=== PATIENT | male | born 1940 | race Caucasian/White ===

== ENCOUNTER → 2020-08-04 10:06 | Outpatient (BNVA) | payer MEDICARE, SELFPAY | PROVIDERS: PCP Family Medicine; Visit Provider Hospitalist | DX: J67.9 Hypersensitivity pneumonitis due to unspecified organic dust (principal); J84.9 Interstitial pulmonary disease, unspecified; R06.02 Shortness of breath; S22.49XD Multiple fractures of ribs, unspecified side, subsequent encounter for fracture with routine healing; W18.30XD Fall on same level, unspecified, subsequent encounter; Y93.9 Activity, unspecified; Y92.9 Unspecified place or not applicable; Y99.8 Other external cause status; Z87.891 Personal history of nicotine dependence | CPT/HCPCS: 99202; 99212 ==

== ENCOUNTER 2020-11-23 15:11 | Outpatient (REF) | payer MEDICARE, SELFPAY ==
[2020-11-23 15:34] LABS: MANUAL DIFF FLAG NO
[2020-11-23 16:02] LABS: Basophils Absolute Auto 0.1 X10*3/uL (0.0-0.2); Basophils Percent Auto 0.7 % (0-2); Eosinophils Absolute Auto 0.2 X10*3/uL (0.0-0.4); Eosinophils Percent Auto 2.2 % (0-4); Hematocrit 32.6 % (42-52); Hemoglobin 10.9 g/dl (14.0-18.0); Imm Gran Abs Auto 0.03 X10*3/uL (0.00-0.03); Imm Gran Pct Auto 0.4 % (0.0-0.4); Lymphocytes Absolute Auto 1.8 X10*3/uL (1.2-4.9); Lymphocytes Percent Auto 25.8 % (20-40); Mean Corpuscular HGB Conc 33.4 g/dl (31.0-36.0); Mean Corpuscular Hemoglobin 36.2 pg (27.0-33.0); Mean Corpuscular Volume 108.3 fL (80-98); Mean Platelet Volume 9.7 fL (9.4-12.4); Monocytes Percent Auto 14.2 % (2-11); Neutrophils Absolute Auto 3.9 X10*3/uL (2.0-8.3); Neutrophils Percent Auto 56.7 % (45-73); Platelet Count 300 X10*3/uL (160-400); Red Blood Count 3.01 X10*6/uL (4.60-5.80); Red Cell Distribution Width 16.2 % (11.0-16.0); White Blood Count 6.8 X10*3/uL (4.8-10.8)
[2020-11-23 16:58] LABS: Alanine Aminotransferase 10 U/L (0-40); Albumin Level 3.7 g/dL (3.5-5.0); Alkaline Phosphatase 61 U/L (39-117); Aspartate Amino Transferase 16 U/L (5-37); Bilirubin Total 0.8 mg/dL (0.0-1.0); Blood Urea Nitrogen 23 mg/dL (9-16); Calcium 9.3 mg/dL (8.4-10.2); Estimated Glomerular Filt Rate > 60; Glucose Random 87 mg/dL (60-115); Lactate Dehydrogenase 161 U/L (118-273); Total Protein 7.6 g/dL (6.5-8.0)
[2020-11-23 17:28] LABS: Anion Gap 13 (12-20); Carbon Dioxide 26 mmol/L (22-29); Chloride 105 mmol/L (96-108); Potassium 4.4 mmol/L (3.3-5.1); Sodium 140 mmol/L (135-145)
[2020-11-25 02:40] LABS: Immunoglobulin A 20 mg/dL (70-320); Immunoglobulin G 392 mg/dL (600-1540); Immunoglobulin M 2783 mg/dL (50-300)
[2020-11-30 07:36] LABS: Viscosity 2.2 rel to H2O (1.5-1.9)
== END 2020-11-23 15:12 | disposition home or self-care (01) ==
LOC: HO.LAB 15:11
PROVIDERS: PCP Family Medicine; Visit Provider Internal Medicine
DX: D47.2 Monoclonal gammopathy (principal)
CPT/HCPCS: 36415; 80053; 82784; 83615; 85025; 85810

== ENCOUNTER → 2021-02-23 11:17 | Outpatient (BNVA) | payer MEDICARE, SELFPAY | PROVIDERS: PCP Family Medicine; Visit Provider Psychiatry & Neurology Neurology | DX: F03.90 Unspecified dementia, unspecified severity, without behavioral disturbance, psychotic disturbance, mood disturbance, and anxiety (principal) | CPT/HCPCS: 99212 ==

== ENCOUNTER 2021-04-12 09:55 | Outpatient (REF) | payer MEDICARE, SELFPAY ==
[2021-04-12 12:12] LABS: MANUAL DIFF FLAG NO
[2021-04-12 12:28] LABS: Basophils Percent Auto 0.5 % (0-2); Eosinophils Absolute Auto 0.1 X10*3/uL (0.0-0.4); Eosinophils Percent Auto 1.3 % (0-4); Hemoglobin 11.2 g/dl (14.0-18.0); Imm Gran Abs Auto 0.03 X10*3/uL (0.00-0.03); Imm Gran Pct Auto 0.4 % (0.0-0.4); Lymphocytes Absolute Auto 1.7 X10*3/uL (1.2-4.9); Lymphocytes Percent Auto 20.2 % (20-40); Mean Corpuscular HGB Conc 32.9 g/dl (31.0-36.0); Mean Corpuscular Hemoglobin 35.2 pg (27.0-33.0); Mean Corpuscular Volume 106.9 fL (80.0-98.0); Mean Platelet Volume 9.4 fL (9.4-12.4); Monocytes Percent Auto 12.4 % (2-11); Neutrophils Absolute Auto 5.4 x10*3/uL (2.0-8.3); Neutrophils Percent Auto 65.2 % (45-73); Platelet Count 307 X10*3/uL (160-400); Red Blood Count 3.18 X10*6/uL (4.60-5.80); White Blood Count 8.2 X10*3/uL (4.8-10.8)
--- NOTE | 2021-04-12 17:47 | PFT_ITS ---
The patient was unable to follow instructions despite several attempts and coaching methods. Thus, the patient was unable to perform pulmonary function test. IMPRESSION: Cancelled pulmonary function test. MD GAMALIEL Henderson/KIMBERLEY / [id number]
[2021-04-14 04:31] LABS: IgA 20 mg/dL (70-320); IgG 400 mg/dL (600-1540); IgM 3326 mg/dL (50-300)
== END 2021-04-12 09:56 | disposition home or self-care (01) ==
LOC: HO.RESP 09:55
PROVIDERS: Visit Provider Hospitalist
DX: D64.9 Anemia, unspecified (principal); D80.1 Nonfamilial hypogammaglobulinemia; J67.9 Hypersensitivity pneumonitis due to unspecified organic dust; J44.9 Chronic obstructive pulmonary disease, unspecified; Z53.09 Procedure and treatment not carried out because of other contraindication
CPT/HCPCS: 36415; 82784; 85025; 94010; 99212

== ENCOUNTER → 2021-04-20 13:27 | Outpatient (BNVA) | payer MEDICARE, SELFPAY | PROVIDERS: PCP Family Medicine; Visit Provider Psychiatry & Neurology Neurology | DX: F03.90 Unspecified dementia, unspecified severity, without behavioral disturbance, psychotic disturbance, mood disturbance, and anxiety (principal); R26.9 Unspecified abnormalities of gait and mobility; Z79.899 Other long term (current) drug therapy | CPT/HCPCS: 99212 ==

== ENCOUNTER → 2021-06-17 10:43 | Outpatient (BNVA) | payer MEDICARE, SELFPAY | PROVIDERS: PCP Family Medicine; Visit Provider Hospitalist | DX: D80.1 Nonfamilial hypogammaglobulinemia (principal); D64.9 Anemia, unspecified; R91.1 Solitary pulmonary nodule | CPT/HCPCS: 99212 ==

== ENCOUNTER 2021-07-12 08:24 | Outpatient (REF) | payer MEDICARE, SELFPAY | END 2021-07-12 08:25 | disposition home or self-care (01) | LOC: HO.PET 08:24 | PROVIDERS: Visit Provider Hospitalist | DX: Z13.89 Encounter for screening for other disorder (principal) ==

== ENCOUNTER 2021-07-13 10:17 | Outpatient (REF) | payer MEDICARE, SELFPAY ==
--- NOTE | ~2021-07-13 | PE_ITS ---
EXAMINATION: PET/CT FUSION SKULL TO THIGH CLINICAL INFORMATION: Solitary pulmonary nodule left lower lobe measuring 8 mm. COMPARISON: Patient had a CT at [facility] and not available for comparison. TECHNIQUE: Following intravenous administration of 15.7 mCi of F-18 FDG in right antecubital vein, whole-body PET emission scan was obtained without oral or IV contrast approximately 70 minutes. 3.[address] transmission scan was obtained without oral or IV contrast. DLP: 954 mGy-cm. FINDINGS: SKULL BASE AND NECK: There is no abnormal metabolic activity seen in the visualized brain parenchyma or the neck region. On CT, the visualized brain parenchyma is unremarkable. The paranasal sinuses are clear. There is dental amalgam-related significant artifact. The optic globes and the optic nerve appear unremarkable. The paranasal sinuses appear well aerated and clear. No abnormal neck mass or lymph nodes visualized. CHEST: There is no abnormal metabolic activity seen in the chest. Especially, there is no focal metabolic hyperactivity seen in the left lower lobe. On CT, there is right lower lobe atelectasis or scarring. There is a subpleural/top of left diaphragm 6 mm nodule axial slice 156/2. No additional nodule is visualized. Focal atelectatic changes are seen in the lingula. ABDOMEN AND PELVIS: There is normal physiological activity seen in the kidneys and the bladder. On CT, the visualized liver, spleen, pancreas, and bilateral adrenal glands are unremarkable. There are no radiopaque gallstones or radiopaque renal calculi. There is an extrarenal left kidney pelvis without obstructive etiology. There is a trace radiopaque density seen in the right distal ureter on axial image 51/2, question small radiopaque gravel or tiny stones. However, no hydronephrosis is seen. The bowel gas is nonspecific with mild constipation. The appendix is not seen. The lymphovascular structures are normal. Imaging in the pelvis reveals a nondistended urinary bladder to be unremarkable. The prostate gland is mildly enlarged. No abnormal sized pelvic, inguinal or retroperitoneal lymph nodes seen. MSK: There is mild increased activity seen in bilateral shoulder joints, likely mild arthritic changes. Bone windows reveal no lytic or sclerotic process. There is mild anterior wedging of the lower dorsal spine and bridging osteophytes at the T12-L1 disc level. There are degenerative disc changes with vacuum disc phenomena from T11-T12 through L5-S1 disc levels with mild ventral spondylosis. PET/PET CT fusion skull to thigh IMPRESSION: No abnormal FDG activity is seen in the chest, especially left lower lobe nodule seen on outside chest x-ray. The images are not available for comparison. There is likely an 8 mm nodule in the left lower lobe on the top of the diaphragm which is not metabolically active at this time. No abnormal mediastinal, hilar or axillary lymphadenopathy seen.
== END 2021-07-13 10:18 | disposition home or self-care (01) ==
LOC: HO.PET 10:17
PROVIDERS: Visit Provider Hospitalist
DX: Z13.89 Encounter for screening for other disorder (principal)

== ENCOUNTER → 2021-07-21 15:02 | Outpatient (BNVA) | payer MEDICARE, SELFPAY | PROVIDERS: PCP Family Medicine; Visit Provider Hospitalist | DX: R91.1 Solitary pulmonary nodule (principal); D80.1 Nonfamilial hypogammaglobulinemia; D64.9 Anemia, unspecified; J67.9 Hypersensitivity pneumonitis due to unspecified organic dust | CPT/HCPCS: 99212 ==

== ENCOUNTER → 2021-08-18 12:58 | Outpatient (BNVA) | payer MEDICARE, SELFPAY | PROVIDERS: PCP Family Medicine; Visit Provider Psychiatry & Neurology Neurology | DX: F03.90 Unspecified dementia, unspecified severity, without behavioral disturbance, psychotic disturbance, mood disturbance, and anxiety (principal); R26.9 Unspecified abnormalities of gait and mobility; Z79.899 Other long term (current) drug therapy | CPT/HCPCS: 99212 ==

== ENCOUNTER → 2022-02-20 13:48 | Outpatient (BNVA) | payer MEDICARE, SELFPAY | PROVIDERS: PCP Family Medicine; Visit Provider Psychiatry & Neurology Neurology | DX: F03.90 Unspecified dementia, unspecified severity, without behavioral disturbance, psychotic disturbance, mood disturbance, and anxiety (principal); F05 Delirium due to known physiological condition; R26.9 Unspecified abnormalities of gait and mobility; I25.10 Atherosclerotic heart disease of native coronary artery without angina pectoris; I10 Essential (primary) hypertension; E78.5 Hyperlipidemia, unspecified; Z91.81 History of falling; Z95.5 Presence of coronary angioplasty implant and graft | CPT/HCPCS: 99212 ==

== ENCOUNTER → 2022-06-26 14:00 | Outpatient (BNVA) | payer MEDICARE, SELFPAY | PROVIDERS: PCP Family Medicine; Visit Provider Psychiatry & Neurology Neurology | DX: F03.90 Unspecified dementia, unspecified severity, without behavioral disturbance, psychotic disturbance, mood disturbance, and anxiety (principal); R26.9 Unspecified abnormalities of gait and mobility | CPT/HCPCS: 99212 ==